=== PATIENT | male | born 1970 | race Caucasian/White ===

== ENCOUNTER 2018-11-10 22:02 | Observation (INO) | payer BC ==
[~2018-11-10] VITALS: Ht 167.6 cm; Wt 90.7 kg
--- OUTSIDE RECORDS SUMMARY | 2018-11-10 22:05 | XMS REPORT | Encounter Summary ---
Author Organization Unknown Address [address] [place] [address] Phone [phone] Reason for Visit Medical Complaint; coughing/feeling weak/price's/body aches started today Instructions 1. Influenza-like symptoms rapid flu (A+B) Tamiflu 75 mg capsule Discussion Note: None recorded. Patient educational handouts: No information available. Plan of Care Patient Instructions Take Tamiflu as directed. Get plenty of rest. Drink plenty of fluids. Over the counter Tylenol or Ibuprofen(Motrin/advil) can be taken for fever and pain. Wash your hands reguularly and cover your cough to help prevent the spread of the flu. If no improvement in 3-4 days or symptoms worsen, please follow up Reminders Provider Appointments None recorded. Lab Rapid Flu (A+B) 08/28/2016 [facility] Referral None recorded. Procedures None recorded. Surgeries None recorded. Imaging None recorded. Medications Name Start Date ranitidine 300 mg tablet Tamiflu 75 mg capsule Take 1 capsule twice a day by oral route for 5 days. Medications Administered None recorded. Vitals Height Weight BMI Blood Pressure 5 ft 6 in 200 lbs 32.3 138/90 Lab Results Date Name Result Description Value Range Status Rapid Flu (A+B) Influenza a negative Influenza B negative Allergies Name Reaction Severity Onset NKDA Problems Name Status Onset Date Source Skin Lesion Active Encounter Influenza-like Symptoms Active Encounter Elevated Blood-pressure Reading without Diagnosis of Hypertension Active Encounter Procedures None recorded. Vaccine List None recorded. Social History Smoking Status Never Smoker Past Encounters 08/28/2016 Influenza-like Symptoms KENN Iverson: [address] [place] [address], Ph. History of Present Illness Huqhj-Ukgjwujaek-Zgjsemq Reported By: Patient HPI: Location: ; cough, bodyaches, runny nose, fatigue x 1 day. Quality: nasal/sinus congestion, dry cough. Duration: 1days. Severity: mild. Onset/Timing: gradual. Context: no sick contacts, no foreign travel, non-smoker. Modifying factors: OTC medication. Associated Symptoms: no sputum production, no shortness of breath, no wheezing, no change in number of pillows needed to sleep at night, no sweats, no significant weight gain, no significant weight loss, no morning cough, no sore throat, no vomiting, no diarrhea, no rash, no nausea, no fever, no muscle aches, no headache Review of Systems Basic Reported By: Patient Constitutional: Constitutional: no fever Eyes: Eyes: no eye complaints Jsam-Auee-Xkzbz-Throat: Ears: no ear complaints. Nose: nose/sinus problems. Mouth/Throat: no bleeding gums, no mouth complaints, no teeth problems, sore throat Cardiovascular: Cardiovascular: no chest pain, no shortness of breath, no known heart murmur Respiratory: Respiratory: no wheezing, no shortness of breath, cough Gastrointestinal: Gastrointestinal: no abdominal pain, no vomiting / diarrhea Genitourinary: Genitourinary: no urinary complaints, no discharge Musculoskeletal: Musculoskeletal: no muscle aches, no muscle weakness, no arthralgias/joint pain, no back pain Skin: Skin: no abnormal / changing mole, no jaundice, no rashes Neurologic: Neurologic: no loss of consciousness, no weakness, no numbness, no seizures, no dizziness, no headaches Physical Exam Adult Basic, Adult Male Complete Constitutional: General Appearance: healthy-appearing, well-nourished, well-developed. Level of Distress: NAD. Ambulation: ambulating normally Psychiatric: Mental Status: active and alert. Orientation: to time, to place, to person Eyes: Lids and Conjunctivae: non-injected, no discharge, no pallor. Pupils: PERRLA. Corneas: grossly intact. EOM: EOMI. Lens: clear. Sclerae: non-icteric. Vision: acuity grossly intact, peripheral vision grossly intact Fpb-Ztji-Cqgyl-Throat: Ears: no lesions on external ear, no outer ear tenderness, EACs clear, TMs clear, TM mobility normal. Hearing: no hearing loss. Nose: no lesions on external nose, nares patent, no septal deviation, nasal passages clear, no sinus tenderness, nasal discharge--rhinorrhea, post nasal drip. Lips, Teeth, and Gums: no mouth or lip ulcers, no bleeding gums, normal dentition. Oropharynx: moist mucous membranes, no exudates, tonsils not enlarged, erythema Neck: Neck: supple, trachea midline, no masses, FROM. Lymph Nodes: no cervical LAD. Thyroid: no enlargement Lungs: Respiratory effort: no dyspnea, no tachypnea, no use of accessory muscles, no intercostal retractions. Auscultation: breath sounds normal, good air movement Cardiovascular: Heart Auscultation: RRR, no murmurs Skin: Inspection and palpation: no rash, no lesions, no ulcer, no abnormal nevi, no induration, no nodules, good turgor, no jaundice
--- OUTSIDE RECORDS SUMMARY | 2018-11-10 22:05 | XMS REPORT | Encounter Summary ---
Author Organization Unknown Address [address] [place] [address] Phone [phone] Reason for Visit Medical Complaint Instructions 1. Acute bronchitis Bromfed DM 2 mg-30 mg-10 mg/5 mL oral syrup Medrol (Sanjiv) 4 mg tablets in a dose pack bronchitis: care instructions 2. Productive cough Zithromax Z-Sanjiv 250 mg tablet 3. Immunization due 4. Body mass index 30+ - obesity body mass index: care instructions learning about healthy weight Discussion Note Pt is aaox3 and in NAD; verbalizes understanding of all instructions and has no further questions at this time Plan of Care Patient Instructions Take the antibiotic as prescribed and complete the full course. If you develop a reaction to the medication, including rash, hives, swelling of throat, difficulty breathing, stop immediately and seek medical care. Consider taking a daily probiotic or yogurt during the course of antibiotics Take acetaminophen or ibuprofen as directed to relieve body aches, headache, and fever Increase non-caffeinated fluid intake Get plenty of rest If you smoke, quit. [facility] can assist you with a plan to help you quit Take over-the counter or prescribed medication as directed To ease coughing, use cough medicine as directed. It has the potential to make you tired- do not drive or operate heavy machinery with fatigue If your symptoms do not improve in 48 hours or worsen, [facility] or follow up with your primary care provider for further evaluation Seek immediate medical attention (ER) or call 911 if you develop chest pain, shortness of breath, difficulty breathing, fever of more than 101 degrees F, or any other concerning symptoms If you have any need to contact [facility], including questions or concerns, please contact or Reminders Provider Appointments None recorded. Lab None recorded. Referral None recorded. Procedures None recorded. Surgeries None recorded. Imaging None recorded. Medications Name Start Date alprazolam 1 mg tablet TK TO AND 2 TS PO HS Bromfed DM 2 mg-30 mg-10 mg/5 mL oral syrup Take 10 mL every 4 hours by oral route as needed. Medrol (Sanjiv) 4 mg tablets in a dose pack take as directed trazodone 50 mg tablet TK 2 TO 3 TS PO QHS PRF INSOMNIA Zithromax Z-Sanjiv 250 mg tablet TAKE 2 TABLETS (500 MG) BY ORAL ROUTE ONCE DAILY FOR 1 DAY THEN 1 TABLET (250 MG) BY ORAL ROUTE ONCE DAILY FOR 4 DAYS Medications Administered None recorded. Vitals Height Weight BMI Blood Pressure 5 ft 6 in 200 lbs 32.3 kg/m2 112/78 mm[Hg] Lab Results None recorded. Allergies Code Code System Name Reaction Severity Status Onset NKDA Problems Name Status Onset Date Source Skin Lesion Active Encounter Influenza-like Symptoms Active Encounter Elevated Blood-pressure Reading without Diagnosis of Hypertension Active Encounter Procedures None recorded. Vaccine List None recorded. Social History Smoking Status Never Smoker Past Encounters 11/05/2018 Acute Bronchitis; Productive Cough; Immunization Due; Body Mass Index 30+ - Obesity KENN Contreras-C: [address] [place] [address], Ph. History of Present Illness Qocoh-Najgsokuec-Rgpexbz Reported By: Patient HPI: Location: head/sinuses. Quality: productive cough, nasal/sinus congestion, dry cough. Duration: 2days. Severity: moderate. Onset/Timing: gradual. Context: sick contact. Associated Symptoms: no vomiting, no diarrhea, no nausea, fatigue, muscle aches, headache Note:48 yo male complains of dry cough x 2 days declines strep test Review of Systems:ROS as noted in the HPI Review of Systems Basic Reported By: Patient Physical Exam Adult Basic, Adult Female Complete, Adult Male Complete, Immunization Reported By: Patient Constitutional: General Appearance: healthy-appearing, well-nourished, well-developed. Level of Distress: NAD. Ambulation: ambulating normally Psychiatric: Mental Status: active and alert. Orientation: to time, to place, to person Eyes: Lids and Conjunctivae: non-injected, no discharge, no pallor. Pupils: PERRLA. Corneas: grossly intact. EOM: EOMI. Lens: clear. Sclerae: non-icteric. Vision: acuity grossly intact Onu-Ftkc-Xwgmz-Throat: Ears: no lesions on external ear, no outer ear tenderness, EACs clear, TMs clear. Hearing: no hearing loss. Nose: no lesions on external nose, nares patent, no septal deviation, nasal passages clear, nasal discharge--rhinorrhea; inflamed nasal turbinates. Lips, Teeth, and Gums: no mouth or lip ulcers, no bleeding gums, normal dentition. Oropharynx: moist mucous membranes, no erythema, no exudates Neck: Lymph Nodes: no cervical LAD, no supraclavicular LAD Lungs: Respiratory effort: no dyspnea, no tachypnea, no use of accessory muscles, no intercostal retractions. Auscultation: decreased breath sounds, rhonchi Cardiovascular: Heart Auscultation: RRR, no murmurs Neurologic: Gait and Station: normal gait, normal station Skin: Inspection and palpation: no rash
--- OUTSIDE RECORDS SUMMARY | 2018-11-10 22:05 | XMS REPORT | Continuity of Care Document ---
Author Author [facility] Interface Address Unknown Phone Unavailable Problems Problem Status Onset Date Classification Date Reported Comments Source Body mass index 30+ - obesity 11/06/2018 Diagnosis 11/06/2018 [facility] Immunization due 11/06/2018 Diagnosis 11/06/2018 [facility] Productive cough 11/06/2018 Diagnosis 11/06/2018 [facility] Acute bronchitis 11/06/2018 Diagnosis 11/06/2018 [facility] Influenza-like symptoms 08/28/2016 Diagnosis 08/28/2016 [facility] ABDOMINAL PAIN Active 11/27/2011 [facility] Abdominal pain Active Problem 11/29/2011 [facility] Gout Resolved Problem 11/29/2011 [facility] Meningitis Active Problem 11/29/2011 [facility] Skin Lesion Problem 11/06/2018 [facility] Influenza-like Symptoms Problem 11/06/2018 [facility] Elevated Blood-pressure Reading without Diagnosis of Hypertension Problem 11/06/2018 [facility] Medications Medication Details Route Status Patient Instructions Ordering Provider Order Date Source GI cocktail 30 mL, Route: PO, Drug Form: SUSP, ONCE, Start date: 11/27/11 18:00:00, Stop date: 11/27/11 18:00:00 PO No Longer Active Kit 11/27/2011 [facility] Phenergan 25 mg oral tablet 25 mg, 1 tab, PO, Q6H, PRN, 15 tab, Nausea, Substitution Allowed PO Active [facility] 11/27/2011 [facility] Cipro 500 mg oral tablet 500 mg, 1 tab, PO, Q12H, 14 tab, Substitution Allowed, TAB PO Active [facility] 11/27/2011 [facility] Lovenox 40 mg, 0.4 mL, Route: SUB-Q, Drug form: INJ, [id number], Start date: 11/27/11 8:00:00, Duration: 30 day, Stop date: 12/26/11 8:00:00 SUB-Q No Longer Active Kit 11/27/2011 [facility] allopurinol 100 mg, PO, Daily, Substitution Allowed PO Active 11/27/2011 [facility] Saline Flush 0.9% 5 ml, Route: IVP, Drug Form: INJ, PRN, PRN Line Flush, Start date: 11/27/11 5:38:00, Duration: 30 day, Stop date: 12/27/11 5:37:00 IVP No Longer Active Kit 11/27/2011 [facility] Sodium Chloride 0.9% IV 1,000 mL 1,000 mL, Rate: 125 ml/hr, Infuse over: 8 hr, Route: IV, Dosing Weight 81.818 kg, Total Volume: 1,000, Start date: 11/27/11 5:38:00, Duration: 30 day, Stop date: 12/27/11 5:37:00 IV No Longer Active Kit 11/27/2011 [facility] morphine Sulfate 2 mg, 1 mL, Route: IVP, Drug form: INJ, Q3H, PRN Pain Score 4-6, Start date: 11/27/11 5:38:00, Duration: 30 day, Stop date: 12/27/11 5:37:00 IVP No Longer Active Kit 11/27/2011 [facility] ondansetron 4 mg, 2 mL, Route: IVP, Drug form: INJ, Q6H, PRN Nausea & Vomiting, Start date: 11/27/11 5:38:00, Duration: 30 day, Stop date: 12/27/11 5:37:00 IVP No Longer Active Kit 11/27/2011 [facility] acetaminophen 650 mg, 2 tab, Route: PO, Drug form: TAB, Q4H, PRN Pain/Fever, Start date: 11/27/11 5:38:00, Duration: 30 day, Stop date: 12/27/11 5:37:00 PO No Longer Active Kit 11/27/2011 [facility] Flagyl 500 mg, Route: IV, ONCE, Start date: 11/27/11 4:21:00, Stop date: 11/27/11 4:21:00 IV No Longer Active [facility]11/27/2011 [facility] ceftriaxone 1 gm, Route: IVPB, ONCE, Priority: STAT, Start date: 11/27/11 4:20:00, Stop date: 11/27/11 4:20:00 IVPB No Longer Active [facility] 11/27/2011 [facility] Phenergan 12.5 mg, Route: IVPB, ONCE, Priority: STAT, Start date: 11/27/11 4:19:00, Stop date: 11/27/11 4:19:00 IVPB No Longer Active [facility] 11/27/2011 [facility] morphine Sulfate 2 mg, Route: IVP, ONCE, Priority: STAT, Start date: 11/27/11 3:40:00, Stop date: 11/27/11 3:40:00 IVP No Longer Active [facility] 11/27/2011 [facility] Sodium Chloride 0.9% (Bolus) IV 1000 mL 1,000 mL, Rate: 1,000 ml/hr, Infuse over: 1 hr, Route: IV, kg, Total Volume: 1,000, Bolus Dose, Priority: STAT, Start date: 11/27/11 3:29:00, Duration: 1 doses or times, Stop date: 11/27/11 4:28:00 IV No Longer Active [facility] 11/27/2011 [facility] morphine Sulfate 2 mg, Route: IVP, ONCE, Priority: STAT, Start date: 11/27/11 2:35:00, Stop date: 11/27/11 2:35:00 IVP No Longer Active [facility] 11/27/2011 [facility] ondansetron 4 mg, Route: IVP, Drug form: INJ, ONCE, Priority: STAT, Start date: 11/27/11 2:25:00, Stop date: 11/27/11 2:25:00 IVP No Longer Active [facility] 11/27/2011 [facility] Sodium Chloride 0.9% (Bolus) IV 1000 mL 1,000 mL, Rate: 1,000 ml/hr, Infuse over: 1 hr, Route: IV, kg, Total Volume: 1,000, Bolus Dose, Priority: STAT, Start date: 11/27/11 2:25:00, Duration: 1 doses or times, Stop date: 11/27/11 3:24:00 IV No Longer Active [facility] 11/27/2011 [facility] Alprazolam 1 MG Oral Tablet alprazolam 1 mg tablet TK 1 TO 1 AND 1/2 TS PO HS Active [facility] Brompheniramine Maleate 0.4 MG/ML / Dextromethorphan Hydrobromide 2 MG/ML / Pseudoephedrine Hydrochloride 6 MG/ML Oral Solution [Bromfed DM] Bromfed DM 2 mg-30 mg-10 mg/5 mL oral syrup Take 10 mL every 4 hours by oral route as needed. Active [facility] Medrol (Sanjiv) 4 mg tablets in a dose pack Medrol (Sanjiv) 4 mg tablets in a dose pack take as directed Active [facility] Trazodone Hydrochloride 50 MG Oral Tablet trazodone 50 mg tablet TK 2 TO 3 TS PO QHS PRF INSOMNIA Active [facility] Azithromycin 250 MG Oral Tablet Zithromax Z-Sanjiv 250 mg tablet TAKE 2 TABLETS (500 MG) BY ORAL ROUTE ONCE DAILY FOR 1 DAY THEN 1 TABLET (250 MG) BY ORAL ROUTE ONCE DAILY FOR 4 DAYS Active [facility] Ranitidine 300 MG Oral Tablet ranitidine 300 mg tablet Active [facility] Oseltamivir 75 MG Oral Capsule [Tamiflu] Tamiflu 75 mg capsule Take 1 capsule twice a day by oral route for 5 days. Active [facility] Allergies, Adverse Reactions, Alerts Substance Category Reaction Severity Reaction type Status Date Reported Comments Source Immunizations Immunization Date Given Site Status Last Updated Comments Source Results Order Name Results Value Reference Range Date Interpretation Comments Source Influenza A negative 08/28/2016 [facility] Influenza B negative 08/28/2016 [facility] CHEMISTRY Potassium Lvl 3.7 meq/L 3.5 - 5.1 11/27/2011 Normal [facility] CHEMISTRY CO2 23 meq/L 24 - 32 11/27/2011 LOW [facility] CHEMISTRY Chloride Lvl 110 meq/L 95 - 109 11/27/2011 HI [facility] CHEMISTRY Calcium Lvl 7.7 mg/dL 8.5 - 10.5 11/27/2011 LOW [facility] CHEMISTRY AGAP 13.7 meq/L 10.0 - 20.0 11/27/2011 Normal [facility] CHEMISTRY Sodium Lvl 143 meq/L 135 - 145 11/27/2011 Normal [facility] CHEMISTRY Creatinine Lvl 1.3 mg/dL 0.5 - 1.4 11/27/2011 Normal [facility] CHEMISTRY BUN 15 mg/dL 7 - 22 11/27/2011 Normal [facility] CHEMISTRY Glucose Lvl 105 mg/dL 70 - 99 11/27/2011 DC 1Interpretive Data: Adult reference range values reflect the clinical guidelinesof the [place] [employer]. [facility] URINALYSIS UA Hyal Cast 6-10 (11/27/2011 12:00:00) 0 - 2 11/27/2011 Normal [facility] URINALYSIS UA Mucus Moderate /LPF *ABN* (11/27/2011 12:00:00) None Seen 11/27/2011 ABN [facility] URINALYSIS UA Bacteria None Seen (11/27/2011 12:00:00) None Seen 11/27/2011 Normal [facility] URINALYSIS UA RBC None Seen (11/27/2011 12:00:00) 0 - 2 11/27/2011 Normal [facility] URINALYSIS UA WBC 0-2 /HPF (11/27/2011 12:00:00) None Seen 11/27/2011 Normal [facility] URINALYSIS UA Sq Epi Rare /LPF (11/27/2011 12:00:00) Few 11/27/2011 Normal [facility] URINALYSIS Micro? Performed (11/27/2011 12:00:00) 11/27/2011 Normal [facility] URINALYSIS UA Bili Negative *NA* (11/27/2011 12:00:00) Negative 11/27/2011 NA [facility] URINALYSIS UA Blood Negative (11/27/2011 12:00:00) Negative 11/27/2011 Normal [facility] URINALYSIS UA Leuk Est Negative (11/27/2011 12:00:00) Negative 11/27/2011 Normal [facility] URINALYSIS UA Nitrite Negative (11/27/2011 12:00:00) Negative 11/27/2011 Normal [facility] URINALYSIS UA Urobilinogen 0.2 EU/dL 0.1 - 1.0 11/27/2011 Normal [facility] URINALYSIS UA Color Yellow *NA* (11/27/2011 12:00:00) Yellow 11/27/2011 [facility] URINALYSIS UA Ketones 15 mg/dL *ABN* (11/27/2011 12:00:00) Negative 11/27/2011 ABN [facility] URINALYSIS UA Protein Negative mg/dL (11/27/2011 12:00:00) Negative 11/27/2011 Normal [facility] URINALYSIS UA Glucose Negative mg/dL (11/27/2011 12:00:00) Negative 11/27/2011 Normal [facility] URINALYSIS UA pH 6.0 5.0 - 8.0 11/27/2011 Normal [facility] URINALYSIS UA Spec Grav 1.020 <=1.030 11/27/2011 Normal [facility] URINALYSIS UA Turbidity Clear (11/27/2011 12:00:00) Clear 11/27/2011 Normal [facility] CHEMISTRY BUN 20 mg/dL 7 - 22 11/27/2011 Normal [facility] CHEMISTRY Glucose Lvl 162 mg/dL 70 - 99 11/27/2011 DC 2Interpretive Data: Adult reference range values reflect the clinical guidelinesof the [place] [employer]. [facility] CHEMISTRY Potassium Lvl 3.8 meq/L 3.5 - 5.1 11/27/2011 Normal [facility] CHEMISTRY Creatinine Lvl 1.8 mg/dL 0.5 - 1.4 11/27/2011 HI [facility] CHEMISTRY Sodium Lvl 139 meq/L 135 - 145 11/27/2011 Normal [facility] CHEMISTRY Bili Total 1.1 mg/dL 0.2 - 1.3 11/27/2011 Normal [facility] CHEMISTRY Alk Phos 76 U/L 39 - 136 11/27/2011 Normal [facility] CHEMISTRY AST 21 U/L 0 - 37 11/27/2011 Normal [facility] CHEMISTRY ALT 34 U/L 0 - 65 11/27/2011 Normal [facility] CHEMISTRY Albumin Lvl 4.8 g/dL 3.5 - 5.0 11/27/2011 Normal [facility] CHEMISTRY Total Protein 8.5 g/dL 6.4 - 8.4 11/27/2011 [facility] CHEMISTRY Calcium Lvl 9.7 mg/dL 8.5 - 10.5 11/27/2011 Normal [facility] CHEMISTRY CO2 22 meq/L 24 - 32 11/27/2011 LOW [facility] CHEMISTRY Chloride Lvl 100 meq/L 95 - 109 11/27/2011 Normal [facility] CHEMISTRY B/C Ratio 11 6 - 25 11/27/2011 Normal [facility] CHEMISTRY Globulin 3.7 g/dL 2.0 - 4.0 11/27/2011 Normal [facility] CHEMISTRY A/G Ratio 1.3 0.7 - 1.6 11/27/2011 Normal [facility] CHEMISTRY AGAP 20.8 meq/L 10.0 - 20.0 11/27/2011 [facility] HEMATOLOGY Lymphocytes 7.0 % 20.0 - 40.0 11/27/2011 LOW [facility] HEMATOLOGY Segs 58.0 % 45.0 - 75.0 11/27/2011 Normal [facility] HEMATOLOGY Bands 29.0 % 0.0 - 11.0 11/27/2011 [facility] HEMATOLOGY Monocytes 6.0 % 2.0 - 12.0 11/27/2011 Normal [facility] HEMATOLOGY Atypical Lymphs 0.0 % <=0.0 11/27/2011 Normal [facility] HEMATOLOGY Plt Morph Normal (11/27/2011 02:40:00) 11/27/2011 Normal [facility] HEMATOLOGY Polychrom Slight (11/27/2011 02:40:00) None Seen 11/27/2011 Normal [facility] HEMATOLOGY Anisocyte 1+ *ABN* (11/27/2011 02:40:00) None Seen 11/27/2011 ABN [facility] HEMATOLOGY Monocytes # 0.7 K/CMM 0.0 - 0.8 11/27/2011 Normal [facility] HEMATOLOGY Lymphocytes # 0.8 K/CMM 1.0 - 5.5 11/27/2011 LOW [facility] HEMATOLOGY Segs-Bands # 10.1 K/CMM 1.5 - 8.1 11/27/2011 [facility] HEMATOLOGY MCHC 34.2 g/dL 32.0 - 36.0 11/27/2011 Normal [facility] HEMATOLOGY MCH 31.8 pg 27.0 - 31.0 11/27/2011 [facility] HEMATOLOGY Hct 48.6 % 42.0 - 54.0 11/27/2011 Normal [facility] HEMATOLOGY MPV 7.4 fL 7.4 - 10.4 11/27/2011 Normal [facility] HEMATOLOGY Hgb 16.6 g/dL 14.0 - 18.0 11/27/2011 Normal [facility] HEMATOLOGY RBC 5.24 M/CMM 4.70 - 6.10 11/27/2011 Normal [facility] HEMATOLOGY MCV 92.8 fL 80.0 - 94.0 11/27/2011 Normal [facility] HEMATOLOGY RDW 13.1 % 11.5 - 14.5 11/27/2011 Normal [facility] HEMATOLOGY Platelet 263 K/CMM 133 - 450 11/27/2011 Normal [facility] HEMATOLOGY WBC 11.6 K/CMM 3.7 - 10.4 11/27/2011 [facility] Vital Signs Vital Sign Value Date Comments Source Diastolic (mm Hg) 78 11/05/2018 [facility] Height 66 11/05/2018 [facility] Systolic (mm Hg) 112 11/05/2018 [facility] Weight 200 11/05/2018 [facility] Diastolic (mm Hg) 90 08/28/2016 [facility] Height 66 08/28/2016 [facility] Systolic (mm Hg) 138 08/28/2016 [facility] Weight 200 08/28/2016 [facility] Diastolic (mm Hg) 69 11/27/2011 [facility] Systolic (mm Hg) 112 11/27/2011 [facility] Heart Rate 72 11/27/2011 [facility] Respitory Rate 18 11/27/2011 [facility] Temperature Oral (F) 99.4 F 11/27/2011 [facility] Respitory Rate 18 11/27/2011 [facility] Heart Rate 86 11/27/2011 [facility] Temperature Oral (F) 98.8 F 11/27/2011 [facility] Diastolic (mm Hg) 69 11/27/2011 [facility] Systolic (mm Hg) 125 11/27/2011 [facility] Diastolic (mm Hg) 66 11/27/2011 [facility] Temperature Oral (F) 99 F 11/27/2011 [facility] Respitory Rate 18 11/27/2011 [facility] Heart Rate 66 11/27/2011 [facility] Systolic (mm Hg) 102 11/27/2011 [facility] Height 170.18 cm 11/27/2011 [facility] Weight 81.818 11/27/2011 [facility] Height 172.72 cm 11/27/2011 [facility] Encounters Location Location Details Encounter Type Encounter Number Reason For Visit Attending Provider ADM Date DC Date Status Source [facility] OU [id number] ABDOMINAL PAIN JOHN KIT 11/27/2011 11/27/2011 Active [facility] [place] - [facility] - [id number] Nely Wallace, DIRECTOR OF DISTANCE LEARNING: [address] [place] [address], Ph. [id number] Nely Wallace 08/28/2016 [facility] [place] [facility] [id number] KENN Contreras-C: [address] [place] [address], Ph. [id number] Swetha Vargas 11/05/2018 [facility] Procedures Procedure Code Date Perfomer Comments Source
--- OUTSIDE RECORDS SUMMARY | 2018-11-10 22:05 | XMS REPORT | CCD ---
Author Author Auto Generated Organization [facility] Address Unknown Phone Unavailable Care Team Providers Care Insurance Actuary Name Role Phone Irving Aleman CP Allergies, Adverse Reactions, Alerts Substance Reaction Status NKDA Active Problem List Condition Effective Dates Status Abdominal pain Active Gout < 11/27/2011 Resolved Meningitis Active Medications Medication Instructions Start Date End Date Status allopurinol 100 mg, PO, Daily, Substitution 11/27/2011 Ordered Allowed Sodium Chloride 0.9% 1,000 mL, Rate: 1,000 ml/hr, Infuse 11/27/2011 11/27/2011 Completed (Bolus) IV 1000 mL over: 1 hr, Route: IV, kg, Total Volume: 1,000, Bolus Dose, Priority: STAT, Start date: 11/27/11 3:29:00, Duration: 1 doses or times, Stop date: 11/27/11 4:28:00 Sodium Chloride 0.9% 1,000 mL, Rate: 1,000 ml/hr, Infuse 11/27/2011 11/27/2011 Completed (Bolus) IV 1000 mL over: 1 hr, Route: IV, kg, Total Volume: 1,000, Bolus Dose, Priority: STAT, Start date: 11/27/11 3:29:00, Duration: 1 doses or times, Stop date: 11/27/11 4:28:00 Flagyl 500 mg, Route: IV, ONCE, Start 11/27/2011 11/27/2011 Completed date: 11/27/11 4:21:00, Stop date: 11/27/11 4:21:00 ceftriaxone 1 gm, Route: IVPB, ONCE, Priority: 11/27/2011 11/27/2011 Completed STAT, Start date: 11/27/11 4:20:00, Stop date: 11/27/11 4:20:00 Lovenox 40 mg, 0.4 mL, Route: SUB-Q, Drug 11/27/2011 11/27/2011 Discontinued form: INJ, [id number], Start date: 11/27/11 8:00:00, Duration: 30 day, Stop date: 12/26/11 8:00:00 Saline Flush 0.9% 5 ml, Route: IVP, Drug Form: INJ, 11/27/2011 11/27/2011 Discontinued PRN, PRN Line Flush, Start date: 11/27/11 5:38:00, Duration: 30 day, Stop date: 12/27/11 5:37:00 Sodium Chloride 0.9% 1,000 mL, Rate: 125 ml/hr, Infuse 11/27/2011 11/27/2011 Discontinued IV 1,000 mL over: 8 hr, Route: IV, Dosing Weight 81.818 kg, Total Volume: 1,000, Start date: 11/27/11 5:38:00, Duration: 30 day, Stop date: 12/27/11 5:37:00 morphine Sulfate 2 mg, 1 mL, Route: IVP, Drug form: 11/27/2011 11/27/2011 Discontinued INJ, Q3H, PRN Pain Score 4-6, Start date: 11/27/11 5:38:00, Duration: 30 day, Stop date: 12/27/11 5:37:00 ondansetron 4 mg, 2 mL, Route: IVP, Drug form: 11/27/2011 11/27/2011 Discontinued INJ, Q6H, PRN Nausea & Vomiting, Start date: 11/27/11 5:38:00, Duration: 30 day, Stop date: 12/27/11 5:37:00 acetaminophen 650 mg, 2 tab, Route: PO, Drug 11/27/2011 11/27/2011 Discontinued form: TAB, Q4H, PRN Pain/Fever, Start date: 11/27/11 5:38:00, Duration: 30 day, Stop date: 12/27/11 5:37:00 Phenergan 12.5 mg, Route: IVPB, ONCE, 11/27/2011 11/27/2011 Completed Priority: STAT, Start date: 11/27/11 4:19:00, Stop date: 11/27/11 4:19:00 morphine Sulfate 2 mg, Route: IVP, ONCE, Priority: 11/27/2011 11/27/2011 Completed STAT, Start date: 11/27/11 2:35:00, Stop date: 11/27/11 2:35:00 GI cocktail 30 mL, Route: PO, Drug Form: SUSP, 11/27/2011 11/27/2011 Completed ONCE, Start date: 11/27/11 18:00:00, Stop date: 11/27/11 18:00:00 Phenergan 25 mg oral 25 mg, 1 tab, PO, Q6H, PRN, 15 tab, 11/27/2011 Ordered tablet Nausea, Substitution Allowed Cipro 500 mg oral 500 mg, 1 tab, PO, Q12H, 14 tab, 11/27/2011 12/04/2011 Ordered tablet Substitution Allowed, TAB morphine Sulfate 2 mg, Route: IVP, ONCE, Priority: 11/27/2011 11/27/2011 Completed STAT, Start date: 11/27/11 3:40:00, Stop date: 11/27/11 3:40:00 ondansetron 4 mg, Route: IVP, Drug form: INJ, 11/27/2011 11/27/2011 Completed ONCE, Priority: STAT, Start date: 11/27/11 2:25:00, Stop date: 11/27/11 2:25:00 Sodium Chloride 0.9% 1,000 mL, Rate: 1,000 ml/hr, Infuse 11/27/2011 11/27/2011 Completed (Bolus) IV 1000 mL over: 1 hr, Route: IV, kg, Total Volume: 1,000, Bolus Dose, Priority: STAT, Start date: 11/27/11 2:25:00, Duration: 1 doses or times, Stop date: 11/27/11 3:24:00 Vital Signs Most recent to oldest [Reference Range]: 1 2 3 Height 170.18 cm (11/27/2011 06:04:00) 172.72 cm (11/27/2011 01:57:00) Current Weight 86.818 kg (11/27/2011 06:04:00) Temperature Oral [96.4-99.1 DegF] 99.4 DegF *HI* (11/27/2011 16:27:00) 98.8 DegF (11/27/2011 12:00:00) 99 DegF (11/27/2011 08:00:00) Systolic Blood Pressure [90-140 mmHg] 112 mmHg (11/27/2011 16:27:00) 125 mmHg (11/27/2011 12:00:00) 102 mmHg (11/27/2011 08:00:00) Diastolic Blood Pressure [60-90 mmHg] 69 mmHg (11/27/2011 16:27:00) 69 mmHg (11/27/2011 12:00:00) 66 mmHg (11/27/2011 08:00:00) Respiratory Rate [14-20 BRMIN] 18 BRMIN (11/27/2011 16:27:00) 18 BRMIN (11/27/2011 12:00:00) 18 BRMIN (11/27/2011 08:00:00) Peripheral Pulse Rate [60-100 bpm] 72 bpm (11/27/2011 16:27:00) 86 bpm (11/27/2011 12:00:00) 66 bpm (11/27/2011 08:00:00) Weight 81.818 kg (11/27/2011 01:57:00) Results URINALYSIS Most recent to oldest [Reference Range]: 1 2 UA Turbidity [Clear] Clear (11/27/2011 12:00:00) UA Color [Yellow] Yellow *NA* (11/27/2011 12:00:00) UA pH [5.0-8.0] 6.0 (11/27/2011 12:00:00) UA Spec Grav [<=1.030] 1.020 (11/27/2011 12:00:00) UA Glucose [Negative mg/dL] Negative mg/dL (11/27/2011 12:00:00) UA Blood [Negative] Negative (11/27/2011 12:00:00) UA Ketones [Negative mg/dL] 15 mg/dL *ABN* (11/27/2011 12:00:00) UA Protein [Negative mg/dL] Negative mg/dL (11/27/2011 12:00:00) UA Urobilinogen [0.1-1.0 EU/dL] 0.2 EU/dL (11/27/2011 12:00:00) UA Bili [Negative] Negative *NA* (11/27/2011 12:00:00) UA Leuk Est [Negative] Negative (11/27/2011 12:00:00) UA Nitrite [Negative] Negative (11/27/2011 12:00:00) UA WBC [None Seen /HPF] 0-2 /HPF (11/27/2011 12:00:00) UA RBC [0-2] None Seen (11/27/2011 12:00:00) UA Bacteria [None Seen] None Seen (11/27/2011 12:00:00) UA Sq Epi [Few /LPF] Rare /LPF (11/27/2011 12:00:00) UA Hyal Cast [0-2] 6-10 (11/27/2011 12:00:00) UA Mucus [None Seen /LPF] Moderate /LPF *ABN* (11/27/2011 12:00:00) Micro? Performed (11/27/2011 12:00:00) CHEMISTRY Most recent to oldest [Reference Range]: 1 2 Sodium Lvl [135-145 mEq/L] 143 mEq/L (11/27/2011 15:54:00) 139 mEq/L (11/27/2011 02:40:00) Potassium Lvl [3.5-5.1 mEq/L] 3.7 mEq/L (11/27/2011 15:54:00) 3.8 mEq/L (11/27/2011 02:40:00) Chloride Lvl [95-109 mEq/L] 110 mEq/L *HI* (11/27/2011 15:54:00) 100 mEq/L (11/27/2011 02:40:00) CO2 [24-32 mEq/L] 23 mEq/L *LOW* (11/27/2011 15:54:00) 22 mEq/L *LOW* (11/27/2011 02:40:00) AGAP [10.0-20.0 mEq/L] 13.7 mEq/L (11/27/2011 15:54:00) 20.8 mEq/L *HI* (11/27/2011 02:40:00) Creatinine Lvl [0.5-1.4 mg/dL] 1.3 mg/dL (11/27/2011 15:54:00) 1.8 mg/dL *HI* (11/27/2011 02:40:00) BUN [7-22 mg/dL] 15 mg/dL (11/27/2011 15:54:00) 20 mg/dL (11/27/2011 02:40:00) B/C Ratio [6-25] 11 (11/27/2011 02:40:00) Glucose Lvl [70-99 mg/dL] 105 mg/dL 1 *HI* (11/27/2011 15:54:00) 162 mg/dL 2 *HI* (11/27/2011 02:40:00) Total Protein [6.4-8.4 g/dL] 8.5 g/dL *HI* (11/27/2011 02:40:00) Albumin Lvl [3.5-5.0 g/dL] 4.8 g/dL (11/27/2011 02:40:00) Globulin [2.0-4.0 g/dL] 3.7 g/dL (11/27/2011 02:40:00) A/G Ratio [0.7-1.6] 1.3 (11/27/2011 02:40:00) Calcium Lvl [8.5-10.5 mg/dL] 7.7 mg/dL *LOW* (11/27/2011 15:54:00) 9.7 mg/dL (11/27/2011 02:40:00) ALT [0-65 U/L] 34 U/L (11/27/2011 02:40:00) AST [0-37 U/L] 21 U/L (11/27/2011 02:40:00) Alk Phos [39-136 U/L] 76 U/L (11/27/2011 02:40:00) Bili Total [0.2-1.3 mg/dL] 1.1 mg/dL (11/27/2011 02:40:00) 1Interpretive Data: Adult reference range values reflect the clinical guidelinesof the [place] [employer]. 2Interpretive Data: Adult reference range values reflect the clinical guidelinesof the [place] [employer]. HEMATOLOGY Most recent to oldest [Reference Range]: 1 2 WBC [3.7-10.4 K/CMM] 11.6 K/CMM *HI* (11/27/2011 02:40:00) RBC [4.70-6.10 M/CMM] 5.24 M/CMM (11/27/2011 02:40:00) Hgb [14.0-18.0 g/dL] 16.6 g/dL (11/27/2011 02:40:00) Hct [42.0-54.0 %] 48.6 % (11/27/2011 02:40:00) MCV [80.0-94.0 fL] 92.8 fL (11/27/2011 02:40:00) MCH [27.0-31.0 pg] 31.8 pg *HI* (11/27/2011 02:40:00) MCHC [32.0-36.0 g/dL] 34.2 g/dL (11/27/2011 02:40:00) RDW [11.5-14.5 %] 13.1 % (11/27/2011 02:40:00) Platelet [133-450 K/CMM] 263 K/CMM (11/27/2011 02:40:00) MPV [7.4-10.4 fL] 7.4 fL (11/27/2011 02:40:00) Segs [45.0-75.0 %] 58.0 % (11/27/2011 02:40:00) Bands [0.0-11.0 %] 29.0 % *HI* (11/27/2011 02:40:00) Lymphocytes [20.0-40.0 %] 7.0 % *LOW* (11/27/2011 02:40:00) Atypical Lymphs [<=0.0 %] 0.0 % (11/27/2011 02:40:00) Monocytes [2.0-12.0 %] 6.0 % (11/27/2011 02:40:00) Segs-Bands # [1.5-8.1 K/CMM] 10.1 K/CMM *HI* (11/27/2011 02:40:00) Lymphocytes # [1.0-5.5 K/CMM] 0.8 K/CMM *LOW* (11/27/2011 02:40:00) Monocytes # [0.0-0.8 K/CMM] 0.7 K/CMM (11/27/2011 02:40:00) Anisocyte [None Seen] 1+ *ABN* (11/27/2011 02:40:00) Polychrom [None Seen] Slight (11/27/2011 02:40:00) Plt Morph Normal (11/27/2011 02:40:00)
--- NOTE | 2018-11-10 23:13 | NUR ---
DR. CASTRO IN TREATMENT ROOM FOR EVALUATION
--- NOTE | 2018-11-11 00:09 | Diagnostic Imaging Report ---
EXAMINATION: CHEST 2 VIEWS, ABDOMEN-1VIEW (KUB) INDICATION: FOREIGN BODY COMPARISON: None FINDINGS: PA and lateral views TUBES and LINES: None. LUNGS: There is no evidence of pneumonia or pulmonary edema. PLEURA: No pleural effusion or pneumothorax. HEART AND MEDIASTINUM: The cardiomediastinal silhouette is unremarkable. BONES AND SOFT TISSUES: No acute osseous lesion. Soft tissues are unremarkable. ABDOMEN: No free air under the diaphragm. 3.2 cm long metallic foreign body with pointed tip projects over the upper right abdomen. No evidence for obstruction. No abnormal calcifications. No mass effect. IMPRESSION: No acute thoracic abnormality. 3.2 cm long metallic foreign body with pointed tip projects over the right upper abdomen. Signed by: DR. Stephon Hayes MD on 11/11/2018 12:05 AM
[2018-11-11 02:01] LABS: BASOPHILS % 0.5 % (0.0-1.0); EOSINOPHILS # (AUTO) 0.3 (0.0-0.4); EOSINOPHILS % 3.4 % (0.0-6.0); LYMPHOCYTES # (AUTO) 3.4 (1.0-3.2); LYMPHOCYTES % 39.7 % (18.0-39.1); MEAN CORPUSCULAR HEMOGLOBIN 31.4 pg (28-32); MEAN CORPUSCULAR VOLUME 92.3 fL (81-99); MONOCYTES # (AUTO) 0.8 (0.2-0.8); MONOCYTES % 9.8 % (4.4-11.3); PLATELET COUNT 264 x10e3/uL (140-360); RED BLOOD COUNT 5.09 x10e6/uL (4.3-5.7); RED CELL DISTRIBUTION WIDTH 12.9 % (11.7-14.4)
[2018-11-11] MEDS ORDERED: SIMETHICONE 40 MG/0.6 ML BTL ONE (02:06)
[2018-11-11 02:13] LABS: INR 0.89; PROTHROMBIN TIME 12.5 seconds (11.9-14.5)
[2018-11-11 02:25] LABS: ALANINE AMINOTRANSFERASE 31 IU/L (0-55); ALBUMIN 3.9 g/dL (3.5-5.0); ALBUMIN/GLOBULIN RATIO 0.9 (0.8-2.0); ALKALINE PHOSPHATASE 59 IU/L (40-150); ANION GAP 15.6 mmol/L (8-16); BLOOD UREA NITROGEN 17 mg/dL (7-26); BUN/CREATININE RATIO 18 (6-25); CALCIUM 9.7 mg/dL (8.4-10.2); CARBON DIOXIDE 26 mmol/L (22-29); CHLORIDE 98 mmol/L (98-107); CREATININE, SERUM 0.96 mg/dL (0.72-1.25); EST GLOMERULAR FILTRATION RATE > 60 ML/MIN (60-); GLUCOSE 98 mg/dL (74-118); POTASSIUM 3.6 mmol/L (3.5-5.1); SODIUM 136 mmol/L (136-145)
--- OUTSIDE RECORDS SUMMARY | 2018-11-11 02:32 | XMS REPORT ---
[facility] Address Unknown Phone Unavailable Care Team Providers Care Contract Coordinator Name Role Phone Wilfrid GOLDBERG Unavailable Unavailable Problems This patient has no known problems. Allergies, Adverse Reactions, Alerts This patient has no known allergies or adverse reactions. Medications This patient has no known medications. Results Test Description Test Time Test Comments Text Results Atomic Results Result Comments CHEST 2 VIEWS 2018-11-10 23:53:00 [place] [id number] Patient Name: MARKO RICE MR #: [id number] : 1970 Age/Sex: 48/M Req #: [id number] Adm Physician: Ordered by: CLARISSA GOLDBERG MD Report #: [id number] Location: ER Room/Bed: Procedure: [id number] DX/CHEST 2 VIEWS Exam Date: 11/10/18 Exam Time: 2340 REPORT STATUS: Signed EXAMINATION: CHEST 2 VIEWS, ABDOMEN-1VIEW (KUB) IND ICATION: FOREIGN BODY COMPARISON: None FINDINGS: PA and lateral views TUBES and LINES: None. LUNGS: There is no evidence of pneumonia or pulmonary edema. PLEURA: No pleural effusion or pneumothorax. HEART AND MEDIASTINUM: The cardiomediastinal silhouette is unremarkable. BONES AND SOFT TISSUES: No acute osseous lesion. Soft tissues are unremarkable. ABDOMEN: No free air under the diaphragm. 3.2 cm long metallic foreign body with pointed tip projects over the upper right abdomen. No evidence for obstruction. No abnormal calcifications. No mass effect. IMPRESSION: No acute thoracic abnormality. 3.2 cm long metallic foreign body with pointed tip projects over the right upper abdomen. Signed by: DR. Stephon Rahman MD on 11/11/2018 12:05 AM Dictated By: STEPHON RAHMAN MD 0005 Transcribed By: SURESH on 11/11/18 0005 COPY TO: CLARISSA GOLDBERG MD ABDOMEN-1VIEW (KUB) 2018-11-10 23:53:00 [place] [id number] Patient Name: MARKO RICE MR #: [id number] : 1970 Age/Sex: 48/M Req #: [id number] Adm Physician: Ordered by: CLARISSA GOLDBERG MD Report #: [id number] Location: ER Room/Bed: Procedure: [id number] DX/ABDOMEN-1VIEW (KUB) Exam Date: 11/10/18 Exam Time: 2340 REPORT STATUS: Signed EXAMINATION: CHEST 2 VIEWS, ABDOMEN-1VIEW (KUB) INDICATION: FOREIGN BODY COMPARISON: None FINDINGS: PA and lateral views TUBES and LINES: None. LUNGS: There is no evidence of pneumonia or pulmonary edema. PLEURA: No pleural effusion or pneumothorax. HEART AND MEDIASTINUM: The cardiomediastinal silhouette is unremarkable. BONES AND SOFT TISSUES: No acute osseous lesion. Soft tissues are unremarkable. ABDOMEN: No free air under the diaphragm. 3.2 cm long metallic foreign body with pointed tip projects over the upper right abdomen. No evidence for obstruction. No abnormal calcifications. No mass effect. IMPRESSION: No acute thoracic abnormality. 3.2 cm long metallic foreign body with pointed tip projects over the right upper abdomen. Signed by: DR. Stephon Rahman MD on 11/11/2018 12:05 AM Dictated By: STEPHON RAHMAN MD Transcribed By: SURESH on 11/11/184 COPY TO: CLARISSA GOLDBERG MD
[2018-11-11] MEDS ORDERED: PANTOPRAZOLE 40 MG 10ML VIAL ONE (03:17)
[2018-11-11 04:00] VITALS: BP 152/95
--- NOTE | 2018-11-11 04:05 | NUR ---
patient received from recovery. patient is resting in bed, AAOx3. Resp even and unlabored. No acute distress noted. Patient denies of any pain or discomfort at this time. at bed side. call light within reach. instruct to call for assistance. bed low/locked. continue to monitor closely
[2018-11-11 04:10] VITALS: BP 152/95
[2018-11-11] MEDS ORDERED: DEXTROSE 5%/LACTATED RINGERS 1,000 ML IV SCH (04:30)
--- NOTE | 2018-11-11 04:30 | NUR ---
patient's home meds are in the bin
[2018-11-11] MEDS: PANTOPRAZOLE INJ 40 MG in SODIUM CHLORIDE 0.9% 50ML 50 ML IV SCH ×2 (04:56→09:26)
[2018-11-11 05:58] LABS: HEMATOCRIT 43.8 % (38.2-49.6); HEMOGLOBIN 14.8 g/dL (14.0-18.0); MEAN CORPUSCULAR HEMOGLOBIN 31.1 pg (28-32); MEAN CORPUSCULAR HGB CONC 33.8 g/dL (31-35); PLATELET COUNT 231 x10e3/uL (140-360); RED BLOOD COUNT 4.76 x10e6/uL (4.3-5.7); RED CELL DISTRIBUTION WIDTH 12.9 % (11.7-14.4)
[2018-11-11 06:24] VITALS: BP 152/95
[2018-11-11 06:52] LABS: ALANINE AMINOTRANSFERASE 26 IU/L (0-55); ALBUMIN 3.6 g/dL (3.5-5.0); ALBUMIN/GLOBULIN RATIO 0.9 (0.8-2.0); ALKALINE PHOSPHATASE 53 IU/L (40-150); ANION GAP 12.8 mmol/L (8-16); BLOOD UREA NITROGEN 16 mg/dL (7-26); BUN/CREATININE RATIO 18 (6-25); CARBON DIOXIDE 25 mmol/L (22-29); CHLORIDE 99 mmol/L (98-107); CREATININE, SERUM 0.89 mg/dL (0.72-1.25); EST GLOMERULAR FILTRATION RATE > 60 ML/MIN (60-); GLUCOSE 127 mg/dL (74-118); POTASSIUM 3.8 mmol/L (3.5-5.1); SODIUM 133 mmol/L (136-145)
--- NOTE | 2018-11-11 06:53 | Diagnostic Imaging Report ---
EXAM: ABDOMEN 2 VIEW DATE: 11/11/2018 7:00 AM INDICATION: Status post endoscopic removal of foreign body. COMPARISON: KUB 11/10/2018 FINDINGS: LINES/TUBES: None BOWEL PATTERN: No evidence for obstruction. Interval removal of foreign body. SOFT TISSUES: No abnormal calcifications. No mass effect. No free air under the diaphragm on upright view. LUNG BASES: Unremarkable. BONES: No acute findings. IMPRESSION: Interval removal of foreign body. No evidence of free air. Signed by: DR. Stephon Hayes MD on 11/11/2018 6:49 AM
--- NOTE | 2018-11-11 07:06 | NUR ---
RCD PT AT BED PT IS ALERT AND ORIENTED PT RESTING ON BED IV PATENT FAMILY AT BED SIDE BED LOW AND LOCKED CALL LIGHT IN REACH
[2018-11-11 08:00] VITALS: BP 128/70
[2018-11-11] MEDS ORDERED: TYLENOL WITH C1 EACH PO (08:17)
[2018-11-11] MEDS ORDERED: IBUPROFEN400 MG PO (08:17)
[2018-11-11] MEDS ORDERED: AMOXICILLIN250 MG PO (08:17)
--- NOTE | 2018-11-11 08:18 | NUR ---
PAGED DR Angelo TREVIÑO TO GET THE ORDER TO RENEW HOME MEDICATIONS
--- NOTE | 2018-11-11 09:08 | NUR ---
DR Angelo TREVIÑO RETURNED CALL AND GOT NEW ORDERS
[2018-11-11] MEDS ORDERED: ACETAMINOPHEN/CODEINE 300MG - 30MG TAB PO PRN ×2 (09:15→09:30)
[2018-11-11] MEDS ORDERED: IBUPROFEN 400 MG TAB PO PRN (09:30)
[2018-11-11] MEDS ORDERED: PANTOPRAZOL 40MG/SOD CHL 0.9% 50 ML IV SCH (09:45)
--- NOTE | 2018-11-11 10:23 | Operative Report ---
DATE OF PROCEDURE: 11/11/2018 SURGEON: Ramesh Jacinto MD PROCEDURE: EGD with foreign body removal and biopsies. INDICATIONS FOR EGD: Foreign body in the stomach. MEDICATION: The patient was done under general endotracheal anesthesia, please see anesthesiologist's note. PROCEDURE IN DETAIL: With the patient in the supine position, after adequate induction of general endotracheal anesthesia, a flexible fiberoptic Olympus gastroscope was introduced into the esophagus under direct visualization without any difficulty. There was some patchy erythema noted in the distal esophagus. An approximately 4 mm nodule was noted at the GE junction, that was biopsied. The scope was then advanced with ease into the stomach. Mucosa overlying the antrum and the body revealed some patchy erythema and moderate edema, and biopsies were obtained and sent to stain for H. pylori. An approximately 6 mm ulcer was noted in the antrum along the anterior wall with heaped up margins and stigmata of recent hemorrhage. Biopsies were obtained. The pylorus was of normal contour and shape. It was intubated with ease and the scope was advanced all the way to the third portion of the duodenum. A drill bit was encountered and it was retrieved into the stomach with the biopsy forceps. The scope was then retroflexed and the mucosa overlying the fundus and the cardia appeared to be within normal limits. The scope was then straightened out. The drill bit was then grasped again with the biopsy forceps and retrieved. The patient tolerated the procedure well. IMPRESSION: 1. Distal esophagitis. 2. Approximately 4 mm nodule at GE junction, biopsied. 3. Gastritis. 4. Gastric ulcer, antrum, posterior wall, approximately 6 mm in size with heaped up margins and stigmata of recent hemorrhage. Biopsies were obtained. 5. Drill bit was encountered in the third portion of the duodenum and was retrieved. The specimen was photographed and given to the patient's . PLAN: Follow up histology. Initiate Protonix 40 mg one p.o. q.a.m. before meals. Ramesh Jacinto MD [facility] [place] /[id number]
[2018-11-11 11:48] VITALS: BP 128/70
[2018-11-11 12:15] VITALS: BP 133/88
[2018-11-11] MEDS ORDERED: SEVOFLURANE INHAL SOLN 250 ML PEN BTL ONE (13:23)
[2018-11-11] MEDS ORDERED: SUCCINYLCHOLINE 200 MG/10 ML SYR ONE (13:23)
[2018-11-11] MEDS ORDERED: LIDOCAINE HCL 2% LOCAL INJ 5 ML SDV VIAL INJ ONE (13:23)
[2018-11-11] MEDS ORDERED: PROPOFOL IV EMULSION 10 MG/ML 20 ML VIAL ONE (13:23)
[2018-11-11] MEDS ORDERED: ROCURONIUM BROMIDE 10 MG/ML 5ML VIAL ONE (13:23)
[2018-11-11] MEDS ORDERED: MIDAZOLAM HCL 2 MG/2 ML VIAL ONE (14:54)
[2018-11-11] MEDS ORDERED: FENTANYL CITRATE/PF 100MCG/2 ML INJ ONE (14:54)
[2018-11-11] MEDS ORDERED: PANTOPRAZOLE SO40 MG PO (14:59)
[2018-11-11] MEDS ORDERED: IBUPROFEN 400 MG TAB PO SCH (15:00)
--- NOTE | 2018-11-11 15:15 | NUR ---
PT WENT HOME IN SAFE CONDITION WITH HIS
== END 2018-11-11 15:13 | disposition home or self-care (01) ==
LOC: ER 22:02 → OR 11-11 02:28 → MED/SURG2 11-11 03:20
PROVIDERS: ADMIT Internal Medicine Gastroenterology; ATTEND Internal Medicine Gastroenterology
DX: T18.2XXA Foreign body in stomach, initial encounter (principal); K20.9 Esophagitis, unspecified; K29.70 Gastritis, unspecified, without bleeding; K25.4 Chronic or unspecified gastric ulcer with hemorrhage; K21.9 Gastro-esophageal reflux disease without esophagitis
CPT/HCPCS: 36415; 43239; 43247; 71046; 74018; 74019; 80053; 85007; 85025; 85027; 85610; 86850; 86900; 88305; 88312; 99282; C9113; G0378; J2001; J2250; J2704; J7121; 45379

== ENCOUNTER 2024-06-21 06:19 | Emergency (ER) | payer BC ==
[~2024-06-21] VITALS: Ht 167.6 cm; Wt 81.6 kg
[~2024-06-21 06:19] MED LIST: AMOXICILLIN250 MG PO; IBUPROFEN400 MG PO; PANTOPRAZOLE SO40 MG PO; TYLENOL WITH C1 EACH PO
[2024-06-21 06:28] VITALS: TEMP 99
[2024-06-21 06:52] LABS: BASOPHILS % 0.3 % (0.0-1.0); EOSINOPHILS % 0.1 % (0.0-6.0); HEMATOCRIT 39.1 % (38.2-49.6); HEMOGLOBIN 12.9 g/dL (14.0-18.0); LYMPHOCYTES # (AUTO) 1.5 (1.0-3.2); LYMPHOCYTES % 10.8 % (18.0-39.1); MEAN CORPUSCULAR HEMOGLOBIN 31.5 pg (28-32); MEAN CORPUSCULAR VOLUME 95.4 fL (81-99); MONOCYTES % 7.6 % (4.4-11.3); NEUTROPHILS # (AUTO) 10.8 (2.1-6.9); NEUTROPHILS % 80.3 % (38.7-80.0); PLATELET COUNT 246 x10e3/uL (140-360); RED CELL DISTRIBUTION WIDTH 13.3 % (11.7-14.4); WHITE BLOOD COUNT 13.44 x10e3/uL (4.8-10.8)
[2024-06-21] MEDS: ONDANSETRON HCL INJ 2MG/ML 2ML 2 MG/ML VIAL IV STA (07:09)
[2024-06-21] MEDS: SODIUM CHLORIDE 0.9% 1000ML 1,000 ML IV ONE (07:10)
[2024-06-21] MEDS: KETOROLAC TROMETHAMINE 30 MG/ML VIAL IV STA (07:10)
[2024-06-21 07:22] LABS: ALBUMIN 3.3 g/dL (3.5-5.0); ALBUMIN/GLOBULIN RATIO 0.7 (0.8-2.0); ANION GAP 15.8 mmol/L (8-16); BILIRUBIN,TOTAL 0.5 mg/dL (0.2-1.2); CALCIUM 9.3 mg/dL (8.4-10.2); CREATININE, SERUM 0.82 mg/dL (0.72-1.25); POTASSIUM 3.8 mmol/L (3.5-5.1); TOTAL PROTEIN 7.9 g/dL (6.5-8.1)
[2024-06-21] MEDS ORDERED: IOPAMIDOL 370 MG/ML 100 ML INFUS..BTL INJ ONE (08:07)
[2024-06-21] MEDS ORDERED: Vancomycin IV 1 GM in SODIUM CHLORIDE 0.9% 250ML 250 ML IV ONE (09:45)
[2024-06-21 09:51] LABS: BILIRUBIN,URINE NEGATIVE (NEGATIVE); CLARITY,URINE CLEAR (CLEAR); COLOR,URINE YELLOW (YELLOW); GLUCOSE, URINE NEGATIVE (NEGATIVE); KETONES,URINE 1+ (NEGATIVE); LEUKOCYTE ESTERASE ,URINE NEGATIVE (NEGATIVE); NITRITE,URINE NEGATIVE (NEGATIVE); PH,URINE 5.5 (5 - 7); PROTEIN,URINE DIPSTICK NEGATIVE (NEGATIVE); URINE UROBILINOGEN 0.2 mg/dL (0.2 - 1)
[2024-06-21 09:56] LABS: BACTERIA,URINE FEW /HPF; EPITHELIAL CELLS,URINE RARE /LPF; MUCUS,URINE FEW (RARE); WBC,URINE (MAN) 0-5 /HPF (0-5)
[2024-06-21 10:30] VITALS: PULSE 60; RESP 18; O2SAT 100
== END 2024-06-21 11:40 | disposition other institution (70) ==
LOC: ER 06:24
DX: R10.12 Left upper quadrant pain (principal); I38 Endocarditis, valve unspecified; N28.0 Ischemia and infarction of kidney
CPT/HCPCS: 36415; 74177; 80053; 81001; 83690; 85025; 87040; 87071; 87205; 93005; 93306; 99284; J1885; J2405; J7030; Q9967